=== PATIENT | female | born 2000 | race Caucasian/White ===

== ENCOUNTER 2022-08-20 20:02 | Emergency (ER) | payer SELFPAY ==
[~2022-08-20] VITALS: Ht 157.5 cm; Wt 82.1 kg
[2022-08-20 20:29] VITALS: BP 121/87
--- NOTE | 2022-08-20 21:29 | NUR ---
Patient ambulated to bed 4.
[2022-08-20] MEDS ORDERED: ALUMINUM HYD/MAG/SIMETHICONE 30 ML, DICYCLOMINE HCL LIQUID 20 MG, LIDOCAINE VISCOUS 2% ... PO ONE ×3 (22:55)
[2022-08-20] MEDS ORDERED: MAGNESIUM CITRATE 300 ML BTL PO ONE (22:55)
[2022-08-20] MEDS ORDERED: MAGN296S2 PO (22:56)
--- NOTE | 2022-08-20 23:11 | NUR ---
Note mike in EDM - 08/21/22 at 0104 by SALO Patient discharged. Written and verbal after care instructions given and explained about abdominal pain. Patient alert, oriented and verbalized understanding of instructions. Ambulatory with steady gait. All questions addressed prior to discharge. ID band removed. Patient advised to follow up with PMD. Rx of Magnesium Citrate given. Patient educated on indication of medication including possible reaction and side effects. Opportunity to ask questions provided and answered.
[2022-08-20] MEDS ORDERED: ALUMINUM HYD/MAG/SIMETHICONE 30 ML UDC ONE (23:13)
[2022-08-20] MEDS ORDERED: DICYCLOMINE HCL LIQUID 10 MG/5 ML UDC ONE (23:13)
[2022-08-20 23:24] VITALS: BP 121/87
--- NOTE | 2022-08-20 23:24 | NUR ---
Patient discharged. Written and verbal after care instructions given and explained about abdominal pain. Patient alert, oriented and verbalized understanding of instructions. Ambulatory with steady gait. All questions addressed prior to discharge. ID band removed. Patient advised to follow up with PMD. Rx of Magnesium Citrate given. Patient educated on indication of medication including possible reaction and side effects. Opportunity to ask questions provided and answered.
== END 2022-08-20 23:24 | disposition home or self-care (01) ==
LOC: MED 20:02
DX: R10.10 Upper abdominal pain, unspecified (principal); R11.0 Nausea; Z79.899 Other long term (current) drug therapy
CPT/HCPCS: 81002; 81025; 99282